=== PATIENT | female | born 2000 | race Caucasian/White ===

== ENCOUNTER 2021-04-13 13:04 | Emergency (ER) | payer BC, SELFPAY ==
--- NOTE | ~2021-04-13 | CT_ITS ---
EXAMINATION: CT soft tissue neck w con DATE: 04/13/2021 18:34 INDICATION: Neck pain, left pleural pain TECHNIQUE: Computed tomography (CT) of the neck was performed with 75 mL Omnipaque-350 intravenous co ntrast. Automated exposure control and iterative reconstruction technique were employed. Exam dose: 323.34 mGy-cm total exam DLP. COMPARISON: None FINDINGS: There is approximately 10 mm wide 20 mm AP dimension area of low attenuation in the left pe ritonsillar area with poorly defined margins, consistent with phlegmon and possible early abscess for mation Normal thickness of the epiglottis. No cervical mass lesion or lymphadenopathy is noted otherwise. The parotid and submandibular glands a re unremarkable. No prevertebral soft tissue swelling. Normal size and homogeneous enhancement of the thyroid gland. No superior mediastinal mass lesion or lymphadenopathy.. IMPRESSION: Approximately 10 x 20 mm asymmetric area of diminished attenuation of left peritonsillar area which may represent phlegmon, possible early abscess formation Reviewed, dictated and finalized at [facility] Reviewed, dictated and finalized at [facility] IMPRESSION: Approximately 10 x 20 mm asymmetric area of diminished attenuation of left peritonsillar area which may represent phlegmon, possible early absces s formation
[2021-04-13 13:21] VITALS: BP 132/75; PULSE 87; RESP 16; TEMP 37.3; O2SAT 100
--- NOTE | 2021-04-13 16:21 | ED.DENTAL ---
HPI - Dental/Oral General Chief complaint: Dental/Oral Stated complaint: sent from urgent care for tonsils Time Seen by Provider: 04/13/21 16:20 Source: patient Mode of arrival: ambulatory Limitations: no limitations History of Present Illness HPI Narrative: Patient is a 20-year-old female presenting to the emergency department for evaluation of sore throat, sent from urgent care. Patient states that she has been on prednisone for the past 5 days, finish her course of medication today. Patient states that symptoms initially began with rhinorrhea, mild congestion, sore throat, states that sore throat has persisted, greater on the left side than compared to the right. Patient has mild pain with opening her mouth. No difficulty with swallowing. No shortness of breath. Denies cough. Denies fever. Patient has been tested for Covid, influenza, strep, mono all of which have been negative. Patient states that she was sent to the emergency department for evaluation of peritonsillar abscess. Related Data Allergies Allergy/AdvReac Type Severity Reaction Status Date / Time No Known Allergies Allergy Verified 04/13/21 15:31 Review of Systems Review of Systems: CONSTITUTIONAL: Denies fever, chills, or sweats. EYES: Denies visual changes, redness, or discharge. ENT: Reports rhinorrhea, congestion, sore throat CARDIOVASCULAR: Denies chest pain, palpitations, or edema. RESPIRATORY: Denies cough or dyspnea. GASTROINTESTINAL: Denies abdominal pain, nausea, vomiting, or diarrhea. GENITOURINARY: Denies dysuria or hematuria. SKIN: Denies rash or itching. MUSCULOSKELETAL: Denies back pain, joint pain, or myalgia. NEUROLOGIC: Denies headache, numbness, or weakness. [facility] Social History Social History (Updated 04/13/21 @ 17:18 by Saadia Walters MD) Smoking status: Never smoker Alcohol intake: current Alcohol use details: social Substance use: never Gender identity (if verbalized by the patient): Female Exam Narrative: GENERAL: Awake, alert, conversant HEAD: Normocephalic, atraumatic. EYES: 2+ PERRLA and EOMI. ENT: Nares clear, no rhinorrhea or epistaxis. Mucous membranes moist. NECK: Supple. Patient with anterior cervical lymphadenopathy of the left anterior cervical chain. Uvula is midline. Bilateral tonsillar edema, erythema without exudate. Left tonsil larger than right. No trismus. No elevation of the palate. CHEST: No respiratory distress, breathing even and non labored HEART: Regular rate, sinus rhythm ABDOMEN:Non distended, non tender EXTREMITIES: Normal range of motion. No edema. SKIN: Warm, dry, no rash. NEURO:No focal deficits. Alert and oriented x3 Course Vital Signs Vital signs: Vital Signs Temperature 37.3 C 04/13/21 13:21 Pulse Rate 87 04/13/21 13:21 Respiratory Rate 16 04/13/21 13:21 Blood Pressure 132/75 04/13/21 13:21 Pulse Oximetry 100 04/13/21 13:21 Temperature 37.3 C 04/13/21 13:21 Pulse Rate 87 04/13/21 13:21 Respiratory Rate 16 04/13/21 13:21 Blood Pressure 132/75 04/13/21 13:21 Pulse Oximetry 100 04/13/21 13:21 MDM - Dental/Oral MDM Narrative Medical decision making narrative: Patient presented to the emergency department from urgent care for evaluation of possible peritonsillar abscess. On exam, patient does have right tonsillar area which appears larger than the left. She does have left-sided cervical lymphadenopathy. No trismus. Uvula is midline. No airway compromise, no shortness of breath. No neck edema. CT scan reviewed with evidence of phlegmon versus early peritonsillar abscess of the left peritonsillar area. Dr. Box was consulted with ENT. We discussed the patient presenting symptoms, laboratory results, imaging findings. Given patient has no respiratory distress, serum medically stable, patient will receive dose of IV antibiotics here in the ER with prescription for clindamycin to take at home. Patient was given a dose of Decadron i
[2021-04-13] MEDS: ACETAMINOPHEN 500 MG TABLET 1000 MG PO (17:35)
[2021-04-13] MEDS: IBUPROFEN 400 MG TABLET PO (17:35)
[2021-04-13 17:51] LABS: Basophils Percent Auto 0.1 % (0.2-1.2); Hematocrit 39.4 % (37.0-47.0); Hemoglobin 12.9 g/dL (12.0-15.0); Immature Granulocyte Absolute 0.02 K/mm3 (0.00-0.031); Immature Granulocyte Percent A 0.3 % (0-0.5); Lymphocytes Absolute Auto 0.42 K/mm3 (0.9-3.2); Lymphocytes Percent Auto 5.8 % (18.3-44.2); Mean Corpuscular HGB Conc 32.7 g/dl (32-36); Mean Corpuscular Hemoglobin 31.5 pg (26-34); Mean Corpuscular Volume 96.3 fl (80-100); Mean Platelet Volume 10.4 fl (7.4-10.4); Monocytes Absolute Auto 0.1 K/mm3 (0.1-0.6); Monocytes Percent Auto 1.8 % (2.6-8.5); Neutrophils Absolute Auto 6.7 K/mm3 (1.3-6.7); Platelet Count Result 205 k/mm3 (150-375); Red Blood Count 4.09 M/mm3 (4.2-5.4); Red Cell Distribution Width 11.9 % (11.5-14.5); White Blood Count 7.3 K/mm3 (4.5-10.0)
[2021-04-13 17:59] LABS: Anion Gap 9 mmol/L (8-16); Blood Urea Nitrogen 14 mg/dL (7-17); Calcium 8.8 mg/dL (8.4-10.2); Carbon Dioxide 25 mmol/L (22-30); Chloride 105 mmol/L (98-107); Estimated CRCL calculation 134 ml/min; Estimated Glomerular Filt Rate > 60; Glucose 117 mg/dL (65-110); Potassium 3.8 mmol/L (3.4-5.0); Sodium 139 mmol/L (137-145)
[2021-04-13] MEDS: CLINDAMYCIN 600 MG/D5W 50 ML 600 MG/50 ML PIGGYBACK 100 MG IVPB (19:02)
[2021-04-13 19:41] VITALS: BP 123/74; PULSE 76; RESP 16; O2SAT 99
== END 2021-04-13 19:42 | disposition home or self-care (01) ==
PROVIDERS: Emergency Provider Emergency Medicine
DX: J03.90 Acute tonsillitis, unspecified (principal)
CPT/HCPCS: 36415; 70491; 80048; 81025; 85025; 96365; 96375; 99284; A9270; J1100; Q9967

== ENCOUNTER 2025-01-31 11:28 | Emergency (ER) | payer BC, SELFPAY ==
[2025-01-31 11:38] VITALS: BP 105/83; PULSE 72; RESP 16; TEMP 36.8; O2SAT 100
--- NOTE | 2025-01-31 11:38 | ECG_ITS ---
Test Date: 2025-01-31 11:48:05 Measurements Intervals [place] Rate: 60 P: 59 [place]: 140 QRS: 90 QRSD: 95 T: 43 QT: 386 QTc: 386 Interpretive Statements SINUS RHYTHM INCOMPLETE RIGHT BUNDLE BRANCH BLOCK BORDERLINE ECG No previous ECG available for comparison Electronically Signed On 01-31-2025 11:49:18 MOBILE ENGINEER by Wolfgang Sheriff D.O.
--- NOTE | 2025-01-31 12:24 | ED.CHESTPAIN ---
HPI - Chest Pain General Chief Complaint: Chest Pain Stated Complaint: Chest Tightness Pain / SOB Time Seen by Provider: 01/31/25 12:00 Source: patient and RN notes reviewed Mode of arrival: ambulatory Limitations: no limitations History of Present Illness HPI narrative: 24-year-old female presents [facility] complaining of chest pain and shortness of breath started last night. This is yesterday evening she had a panic attack after she was smoking marijuana. Patient felt that she had a rapid heart rate as well, called 911 was evaluated by EMS and refused to be transferred to the hospital. Since then the patient reports she still having chest pain. Patient reports a pressure in the middle of her chest. Patient denies the pain getting worse with exertion. Patient denies any jaw pain, left arm pain, nausea, vomiting, fevers body eczema chills, upper respiratory symptoms. Patient has a history of anxiety and stop taking her anxiety medication months ago. Patient says she has the IUD for control pill. Patient denies any cardiac history, no history of hypertension diabetes, hyperlipidemia, no family history of cardiac disease. Related Data Home Medications ?Medication ?Instructions ?Recorded ?Confirmed ?Last Taken ?Type fluvoxamine 50 mg tablet mg 01/31/25 Unknown History levonorgestrel (Mirena) 1 device intrauterine ONCE 01/31/25 01/31/25 Unknown History Allergies Allergy/AdvReac Type Severity Reaction Status Date / Time No Known Allergies Allergy Verified 01/31/25 11:55 Review of Systems Review of Systems: CONSTITUTIONAL: Denies fever, chills, or sweats. EYES: Denies visual changes, redness, or discharge. ENT: Denies rhinorrhea, congestion, sore throat, or otalgia. CARDIOVASCULAR: Positive for chest pressure. Negative for chest pain with exertion, dizziness, lightheadedness, palpitations, or edema. RESPIRATORY: Denies cough. Positive for dyspnea. GASTROINTESTINAL: Denies abdominal pain, nausea, vomiting, or diarrhea. GENITOURINARY: Denies dysuria or hematuria. SKIN: Denies rash or itching. MUSCULOSKELETAL: Denies back pain, joint pain, or myalgia. NEUROLOGIC: Denies headache, numbness, or weakness. PSYCHIATRIC: Denies anxiety or depression. All other systems reviewed are negative, except as documented in HPI. [facility] Social History Social History (Reviewed 12/19/25 @ 12:28 by BAM Luna Smoking status: Never smoker Alcohol intake: current Alcohol use details: social Substance use: never Gender identity (if verbalized by the patient): Female Comments At the time of my signature, I reviewed and agree with the nursing past medical, surgical, social, and family history. There is no relevant family history pertinent to the patient complaint. Exam Narrative: GENERAL: This is a well-nourished, well-developed adult, in no apparent distress. They are non ill-appearing, nontoxic appearing. HEAD: normocephalic, atraumatic. EYES: Sclera clear/white. Conjunctiva normal. Vision is grossly intact. Extraocular movements intact EARS: External ears normal, auditory canals clear and without drainage, TMs normal without perforation. Hearing grossly intact. NOSE: External nose normal with no obvious nasal discharge, nasal turbinates without redness, no rhinorrhea. THROAT: Mucous membranes moist, posterior pharynx clear, without erythema or swelling. Hypertrophic tonsils 3+, no erythema no exudate. Uvula midline. NECK: Neck supple, non-tender without lymphadenopathy, masses or thyromegaly. CARDIOVASCULAR: Regular rate and rhythm without murmurs, gallops, or rubs. RESPIRATORY: Clear to auscultation. Breath sounds equal bilaterally. No wheezes, rales, or rhonchi. SKIN: warm, Dry, intact with no suspicious lesions or rash, good texture and turgor. NEURO: awake, alert, and oriented to person, place and time. There were no obvious focal neurologic abnormalities. EXTREMITIES: No joint tenderness, effusion, or edema noted. BACK: Nontender without deformity. No CVA tenderness. Course Course Level of Care: Express Care Visit Vital Signs Vital signs: Vital Signs Temperature 98.2 F 01/31/25 11:38 Pulse Rate 72 01/31/25 11:38 Respiratory Rate 16 01/31/25 11:38 Blood Pressure 105/83 01/31/25 11:38 Pulse Oximetry 100 01/31/25 11:38 Temperature 98.2 F 01/31/25 11:38 Pulse Rate 72 01/31/25 11:38 Respiratory Rate 16 01/31/25 11:38 Blood Pressure 105/83 01/31/25 11:38 Pulse Oximetry 100 01/31/25 11:38 [facility] MDM Narrative Medical decision making narrative: EKG is a sinus rhythm, no ischemic findings. EKG is borderline. [place] heart score 1. Chest pain not reproducible, not worse with exertion, likely related to anxiety. Patient has no significant risk factors. Patient is appropriate for outpatient follow-up for her symptoms. Patient nontoxic appearing, no apparent distress, vital signs hemodynamically stable. Offered patient ER transfer for symptoms and she declined. Strict ER precautions discussed with patient especially for chest pain gets worse, breathing problems, fevers, jaw pain, left arm pain, nausea, vomiting, or any serious concerns. Discussed managing her stress, advised to follow-up with her doctor about her anxiety medication, discussed to stop smoking marijuana and avoid drugs or alcohol. Discussed physical exam findings. Advised supportive measures and signs/symptoms to go to the ER. Pt is appropriate for outpt treatment and f/u. Differential Diagnosis Differential Diagnosis: Anxiety, panic attacks, chest pain, atypical chest pain, ACS, unstable angina, angina Critical Care Time Critical Care Time Critical Care Time: No Discharge Plan Discharge Clinical Impression: Chest pain Qualifiers: Chest pain type: other chest pain Qualified Code(s): R07.89 - Other chest pain Patient Disposition: Home Condition: Stable Instructions: Chest Pain (ED), Anxiety (ED) Additional Instructions: Your EKG is a sinus rhythm today. Please follow-up with your PCP in 2-3 days. Rest, drink plenty of fluids avoid any drugs or alcohol. Exercise at least the 3 times a week. If you developed worsening chest pain, chest pain with exertion, jaw pain, left arm pain, rapid heart rate, difficulty breathing or any serious concerns please go to the ER immediately. Patient Language: Tajik Prescriptions: No Action fluvoxamine 50 mg tablet Mirena 21 mcg/24hr (up to 8 yrs) 52 mg intrauterine device 1 device intrauterine ONCE Rx Instructions: as a single dose Follow-up/Referrals: UNKNOWN,DOCTOR [Primary Care Provider] Time of Disposition: 12:07
== END 2025-01-31 12:10 | disposition home or self-care (01) ==
DX: R07.89 Other chest pain (principal); Z97.5 Presence of (intrauterine) contraceptive device
CPT/HCPCS: 93005; 99213; G0463

== ENCOUNTER 2025-02-11 17:02 | Emergency (ER) | payer BC, SELFPAY ==
[2025-02-11 17:14] VITALS: BP 117/77; PULSE 89; RESP 16; TEMP 37.1; O2SAT 100
--- NOTE | 2025-02-11 17:15 | ECG_ITS ---
Test Date: 2025-02-11 17:23:25 Measurements Intervals [place] Rate: 64 P: 41 [place]: 139 QRS: 88 QRSD: 100 T: 40 QT: 369 QTc: 383 Interpretive Statements SINUS RHYTHM INCOMPLETE RIGHT BUNDLE BRANCH BLOCK BORDERLINE ECG Compared to ECG 01/31/2025 11:48:05 No significant changes Electronically Signed On 02-11-2025 19:03:27 COMPUTER ANIMATOR by Wolfgang Sheriff D.O.
--- NOTE | 2025-02-11 17:50 | ED.SOB ---
HPI - SOB/Dyspnea General Chief Complaint: Shortness of Breath/Dyspnea Stated Complaint: Trouble Breathing Time Seen by Provider: 02/11/25 17:35 Source: patient and RN notes reviewed Mode of arrival: ambulatory Limitations: no limitations History of Present Illness HPI Narrative: 24-year-old female patient presents to the [facility] complaining of shortness of breath for the last 2 weeks. Patient was seen here almost 2 weeks ago for chest pain and was discharged. She did return to ER at [facility] a few days later had unremarkable workup, she said they did blood work, EKG, chest x-ray, D-dimer, rule out blood clot and sent her home. Patient did follow-up with her PCP about her symptoms started hydroxyzine as needed for anxiety and referred to a electromagnet crane operator to get a stress test performed. Patient has not seen a electromagnet crane operator yet. Patient reports primarily she is doing with shortness of breath, she says it happens randomly and feels like she can not take a deep breath. Patient denies any wheezing, chest pains, nausea, vomiting, fevers, cough, or any other symptoms. Patient has not used any tobacco or marijuana products since the issues as started. Patient has a follow-up next week with her PCP. Related Data Home Medications ?Medication ?Instructions ?Recorded ?Confirmed ?Last Taken ?Type fluvoxamine 50 mg tablet mg 01/31/25 Unknown History levonorgestrel (Mirena) 1 device intrauterine ONCE 01/31/25 01/31/25 Unknown History hydroxyzine HCl 25 mg tablet mg 02/11/25 Unknown History Allergies Allergy/AdvReac Type Severity Reaction Status Date / Time No Known Allergies Allergy Verified 02/11/25 17:29 Review of Systems Review of Systems: CONSTITUTIONAL: Denies fever, chills, or sweats. EYES: Denies visual changes, redness, or discharge. ENT: Denies rhinorrhea, congestion, sore throat, or otalgia. CARDIOVASCULAR: Denies chest pain, palpitations, orthopnea, dizziness, lightheadedness, or edema. RESPIRATORY: Denies cough. Positive for dyspnea. GASTROINTESTINAL: Denies abdominal pain, nausea, vomiting, or diarrhea. GENITOURINARY: Denies dysuria or hematuria. SKIN: Denies rash or itching. MUSCULOSKELETAL: Denies back pain, joint pain, or myalgia. NEUROLOGIC: Denies headache, numbness, or weakness. PSYCHIATRIC: Denies anxiety or depression. All other systems reviewed are negative, except as documented in HPI. [facility] Social History Social History Smoking status: Never smoker Alcohol intake: current Alcohol use details: social Substance use: never Gender identity (if verbalized by the patient): Female Comments At the time of my signature, I reviewed and agree with the nursing past medical, surgical, social, and family history. There is no relevant family history pertinent to the patient complaint. Exam Narrative: GENERAL: This is a well-nourished, well-developed adult, in no apparent distress. They are non ill-appearing, nontoxic appearing. HEAD: normocephalic, atraumatic. EYES: Sclera clear/white. Conjunctiva normal. Vision is grossly intact. Extraocular movements intact EARS: External ears normal, Hearing grossly intact. NOSE: External nose normal THROAT: Mucous membranes moist, NECK: Neck supple, non-tender without lymphadenopathy, masses or thyromegaly. CARDIOVASCULAR: Regular rate and rhythm without murmurs, gallops, or rubs. RESPIRATORY: Clear to auscultation. Breath sounds equal bilaterally. No wheezes, rales, or rhonchi. Respiratory rate normal, respiratory effort nonlabored, no respiratory distress SKIN: warm, Dry, intact with no suspicious lesions or rash, good texture and turgor. NEURO: awake, alert, and oriented to person, place and time. There were no obvious focal neurologic abnormalities. EXTREMITIES: No joint tenderness, effusion, or edema noted. BACK: Nontender without deformity. Course Course Level of Care: Express Care Visit Vital Signs Vital signs: Vital Signs Temperature 98.8 F 02/11/25 17:14 Pulse Rate 89 02/11/25 17:14 Respiratory Rate 16 02/11/25 17:14 Blood Pressure 117/77 02/11/25 17:14 Pulse Oximetry 100 02/11/25 17:14 Temperature 98.8 F 02/11/25 17:14 Pulse Rate 89 02/11/25 17:14 Respiratory Rate 16 02/11/25 17:14 Blood Pressure 117/77 02/11/25 17:14 Pulse Oximetry 100 02/11/25 17:14 MDM MDM Narrative Medical decision making narrative: EKG sinus rhythm, no ischemic findings, unchanged compared to previous EKG . According to patient she had a a unremarkable workup at [facility], she reports having a negative D-dimer, normal chest x-ray, normal EKG, lab work. Unclear etiology for patient's shortness of breath, for patient follow-up with her PCP closely as she may need pulmonary function testing done to assess lung function. Informed patient contact electromagnet crane operator office to schedule appointment in testing. Offered patient ER transfer for her symptoms today and she declined.Patient is nontoxic appearing, no apparent distress vital signs hemodynamically stable. Patient's stable appropriate for outpatient follow-up. Per patient's request will give her prescription albuterol inhaler to see if it helps with the shortness of breath until she sees her PCP. Differential Diagnosis Differential Diagnosis: Pulmonary fibrosis, pulmonary embolism, asthma, upper respiratory infection, bronchitis, chronic bronchitis, COPD, interstitial lung disease, anxiety, pneumonia ECG Data EKG #1: Attestation: I personally reviewed and interpreted this ECG as follows: ECG completion date: 02/11/25 ECG completion time: 17:23 Prior ECG tracings: available for review normal rate, sinus rhythm, no ectopy, no ST changes, normal QRS and NL axis Critical Care Time Critical Care Time Critical Care Time: No Discharge Plan Discharge Clinical Impression: Shortness of breath Patient Disposition: Home Condition: Stable Instructions: Shortness of Breath (ED) Additional Instructions: Your EKG is unchanged from your previous his EKG, is a sinus rhythm. Please follow-up with your PCP in next 3-5 days for re-evaluation and further testing. Use the albuterol inhaler as needed for shortness of breath or wheezing. Go to the ER if you developed worsening breathing problems, unable to talk in full sentences, vomiting, chest pains, fevers, or any serious concerns. Patient Language: Algerian Prescriptions: New albuterol sulfate [Ventolin HFA] 90 mcg/actuation HFA aerosol inhaler 2 puff inhalation QID PRN (Reason: shortness of breath or wheezing) Qty: 8.5 0RF (DME) Space Chamber Spacer See Rx Instructions .Route Qty: 1 0RF Rx Instructions: As directed No Action fluvoxamine 50 mg tablet Mirena 21 mcg/24hr (up to 8 yrs) 52 mg intrauterine device 1 device intrauterine ONCE Rx Instructions: as a single dose hydroxyzine HCl 25 mg tablet Follow-up/Referrals: PHYSICIAN,METAL FURNACE OPERATOR [Primary Care Provider, Internal Medicine] Time of Disposition: 17:47
== END 2025-02-11 17:52 | disposition home or self-care (01) ==
DX: R06.02 Shortness of breath (principal)
CPT/HCPCS: 93005; 99213; G0463